=== PATIENT | female | born 1995 | race Caucasian/White ===

== ENCOUNTER 2019-02-28 11:34 | Outpatient (CLI) | payer MEDICAID ==
[2019-02-28 12:47] LABS: ADD MAN DIFF? NO
[2019-02-28 12:48] LABS: ABNORMAL IP MESSAGE 1; BASOPHILS % 0.2 % (0.0-2.0); EOSINOPHILS # 0.1 10^3/ul (0.0-0.5); EOSINOPHILS % 0.6 % (0.0-7.0); HEMATOCRIT 29.3 % (37.0-47.0); HEMOGLOBIN 9.7 g/dl (12.0-16.0); LYMPHOCYTES # 1.4 10^3/ul (0.8-2.9); LYMPHOCYTES % 14.1 % (15.0-51.0); MEAN CORPUSCULAR HEMOGLOBIN 28.2 pg (29.0-33.0); MEAN CORPUSCULAR HGB CONC 33.1 g/dl (32.0-37.0); MEAN CORPUSCULAR VOLUME 85.2 fl (82.0-101.0); MEAN PLATELET VOLUME 13.5 fl (7.4-10.4); MONOCYTE # 0.5 10^3/ul (0.3-0.9); MONOCYTES % 5.6 % (0.0-11.0); NEUTROPHIL # 7.7 10^3/ul (1.6-7.5); NEUTROPHILS % 79.3 % (39.0-77.0); PLATELET COUNT 133 10^3/UL (140-415); RED BLOOD COUNT 3.44 10^6/ul (4.20-5.40); RED CELL DISTRIBUTION WIDTH 13.6 % (11.5-14.5)
[2019-02-28 12:48] LABS: WHITE BLOOD COUNT 9.7 10^3/ul (4.8-10.8)
[2019-02-28 12:50] LABS: POSITIVE DIFF @See below
[2019-02-28 12:52] LABS: ADD UMIC YES; UR ASCORBIC ACID NEGATIVE (NEGATIVE); UR BACTERIA FEW /HPF (NONE SEEN); UR BILIRUBIN (Dip) NEGATIVE (NEGATIVE); UR BLOOD (Dip) NEGATIVE (NEGATIVE); UR CLARITY CLEAR (CLEAR); UR COLOR YELLOW (YELLOW); UR GLUCOSE (Dip) NEGATIVE (NEGATIVE); UR KETONES (Dip) NEGATIVE (NEGATIVE); UR LEUKOCYTE ESTERASE (Dip) 2+ Leu/ul (NEGATIVE); UR MUCUS FEW /HPF (NONE SEEN); UR NITRITE (Dip) NEGATIVE (NEGATIVE); UR RBC 0 /HPF (0-5); UR SPECIFIC GRAVITY (Dip) 1.009 (1.003-1.030); UR SQUAMOUS EPITHELIAL CELL FEW /HPF (FEW); UR TOTAL PROTEIN (Dip) NEGATIVE (NEGATIVE); UR UROBILINOGEN (Dip) NEGATIVE (NEGATIVE); UR WBC 2 /HPF (0-5)
== END 2019-02-28 13:35 | disposition home or self-care (01) ==
LOC: OBT 11:34 → L-D 11:34 → OBT 13:35
DX: O62.9 Abnormality of forces of labor, unspecified (principal); Z3A.28 28 weeks gestation of pregnancy
CPT/HCPCS: 76817; 76818; 81001; 85025; 87086

== ENCOUNTER 2019-05-16 07:00 | Inpatient (IN) | payer OTHER, MEDICAID ==
[2019-05-16 08:01] LABS: ADD MAN DIFF? NO
[2019-05-16 08:04] LABS: WHITE BLOOD COUNT 8.5 10^3/ul (4.8-10.8)
[2019-05-16 08:04] LABS: ABNORMAL IP MESSAGE 1; BASOPHILS % 0.2 % (0.0-2.0); EOSINOPHILS % 0.5 % (0.0-7.0); HEMATOCRIT 31.6 % (37.0-47.0); HEMOGLOBIN 10.2 g/dl (12.0-16.0); LYMPHOCYTES # 1.7 10^3/ul (0.8-2.9); LYMPHOCYTES % 20.1 % (15.0-51.0); MEAN CORPUSCULAR HEMOGLOBIN 26.5 pg (29.0-33.0); MEAN CORPUSCULAR HGB CONC 32.3 g/dl (32.0-37.0); MEAN CORPUSCULAR VOLUME 82.1 fl (82.0-101.0); MONOCYTE # 0.5 10^3/ul (0.3-0.9); MONOCYTES % 5.6 % (0.0-11.0); NEUTROPHIL # 6.2 10^3/ul (1.6-7.5); NEUTROPHILS % 73.2 % (39.0-77.0); RED BLOOD COUNT 3.85 10^6/ul (4.20-5.40); RED CELL DISTRIBUTION WIDTH 15.3 % (11.5-14.5)
[2019-05-16 08:07] LABS: ADD UMIC NO; UR ASCORBIC ACID NEGATIVE (NEGATIVE); UR BILIRUBIN (Dip) NEGATIVE (NEGATIVE); UR BLOOD (Dip) NEGATIVE (NEGATIVE); UR CLARITY CLEAR (CLEAR); UR COLOR YELLOW (YELLOW); UR GLUCOSE (Dip) NEGATIVE (NEGATIVE); UR KETONES (Dip) NEGATIVE (NEGATIVE); UR LEUKOCYTE ESTERASE (Dip) NEGATIVE Leu/ul (NEGATIVE); UR NITRITE (Dip) NEGATIVE (NEGATIVE); UR SPECIFIC GRAVITY (Dip) 1.019 (1.003-1.030); UR TOTAL PROTEIN (Dip) NEGATIVE (NEGATIVE); UR UROBILINOGEN (Dip) NEGATIVE (NEGATIVE)
[2019-05-16 08:20] LABS: POSITIVE DIFF @See below
[2019-05-16 08:21] LABS: ALANINE AMINOTRANSFERASE 21 IU/L (13-69); ALBUMIN 2.8 g/dl (3.3-4.9); ALBUMIN/GLOBULIN RATIO 0.93; ALKALINE PHOSPHATASE 154 IU/L (42-121); ANION GAP 7 (5-13); ASPARTATE AMINO TRANSFERASE 28 IU/L (15-46); BILIRUBIN,INDIRECT 0.4 mg/dl (0-1.1); BILIRUBIN,TOTAL 0.4 mg/dl (0.2-1.3); BLOOD UREA NITROGEN 8 mg/dl (7-20); CALCIUM 8.8 mg/dl (8.4-10.2); CARBON DIOXIDE 23 mmol/L (21-31); CHLORIDE 105 mmol/L (97-110); CREATININE 0.53 mg/dl (0.44-1.00); Estimated GFR > 60 mL/min (>60); GLUCOSE 80 mg/dl (70-220); POTASSIUM 3.9 mmol/L (3.5-5.1); SODIUM 135 mmol/L (135-144); TOTAL PROTEIN 5.8 g/dl (6.1-8.1); URIC ACID 4.5 mg/dl (3.1-7.9)
[2019-05-16 08:29] LABS: INR 0.91; PLATELET COUNT 121 10^3/UL (140-415); PROTIME 12.4 Sec (11.9-14.9)
[2019-05-16 08:30] LABS: PARTIAL THROMBOPLASTIN TIME 30.7 Sec (23.0-35.0)
[2019-05-16] MEDS ORDERED: OXYTOCIN 30 UNITS/LR 500 ML IV (11:30)
[2019-05-16] MEDS ORDERED: MISOPROSTOL 200 MCG TAB PR (11:30)
[2019-05-16] MEDS ORDERED: METHYLERGONOVINE 0.2 MG INJ IM (11:30)
[2019-05-16] MEDS ORDERED: IBUPROFEN 600 MG TAB PO (11:30)
[2019-05-16] MEDS ORDERED: LIDOCAINE 1% (MPF) 30 ML INJ INJ (11:30)
[2019-05-16] MEDS ORDERED: CARBOPROST 250 MCG INJ IM (11:30)
[2019-05-16] MEDS ORDERED: BUTORPHANOL 2 MG INJ IV (11:30)
[2019-05-16] MEDS: LACTATED RINGER'S 1,000 ML IV ×2 (13:26→20:01)
[2019-05-16] MEDS: OXYTOCIN 30 UNITS/LR 500 ML IV (13:30)
[2019-05-16 20:03] LABS: RAPID PLASMA REAGIN NONREACTIVE (NR)
[2019-05-16] MEDS: BUTORPHANOL 2 MG INJ IV (23:07)
[2019-05-17] MEDS: LACTATED RINGER'S 1,000 ML IV ×3 (04:06→14:19)
[2019-05-17] MEDS: BUTORPHANOL 2 MG INJ IV ×2 (04:42→12:57)
[2019-05-17] MEDS ORDERED: NALOXONE (0.4 MG/ML) INJ IV (14:30)
[2019-05-17] MEDS ORDERED: DIPHENHYDRAMINE 50 MG INJ IV (14:30)
[2019-05-17] MEDS: FENTAnyl 2MCG/ML-ROPIV 0.2% 100 ML BAG EPI (21:06)
[2019-05-17] MEDS: OXYTOCIN 30 UNITS/LR 500 ML IV ×2 (22:43)
[2019-05-17] MEDS ORDERED: CARBOPROST 250 MCG INJ IM (23:30)
[2019-05-17] MEDS ORDERED: OXYTOCIN 30 UNITS/LR 500 ML IV (23:30)
[2019-05-17] MEDS ORDERED: METHYLERGONOVINE 0.2 MG INJ IM (23:30)
[2019-05-17] MEDS ORDERED: MISOPROSTOL 200 MCG TAB PR (23:30)
[2019-05-17] MEDS ORDERED: HYDROCODONE/APAP (5/325) TAB PO (23:30)
[2019-05-18] MEDS: OXYTOCIN 30 UNITS/LR 500 ML IV ×2 (02:15→08:16)
[2019-05-18] MEDS: LANOLIN HPA 1 PKT TOP (02:15)
[2019-05-18] MEDS: ONDANSETRON 4 MG INJ IV (04:19)
[2019-05-18] MEDS: IBUPROFEN 600 MG TAB PO ×4 (05:54→17:32)
[2019-05-18] MEDS: LACTATED RINGER'S 1,000 ML IV* (08:06)
[2019-05-18 09:47] LABS: HEPATITIS B SURFACE ANTIGEN NEGATIVE (NEGATIVE)
[2019-05-18] MEDS: BENZOCAINE 20% 56 ML SPRAY TOP (14:58)
[2019-05-18] MEDS: WITCH HAZEL/GLYCERIN PAD PR (14:58)
[2019-05-19] MEDS: IBUPROFEN 600 MG TAB PO ×4 (00:51→17:57)
[2019-05-19 08:47] LABS: ADD MAN DIFF? NO
[2019-05-19 08:57] LABS: ABNORMAL IP MESSAGE 1; BASOPHILS % 0.3 % (0.0-2.0); EOSINOPHILS # 0.1 10^3/ul (0.0-0.5); EOSINOPHILS % 0.6 % (0.0-7.0); HEMATOCRIT 26.5 % (37.0-47.0); HEMOGLOBIN 8.5 g/dl (12.0-16.0); LYMPHOCYTES # 1.1 10^3/ul (0.8-2.9); LYMPHOCYTES % 14.1 % (15.0-51.0); MEAN CORPUSCULAR HEMOGLOBIN 26.6 pg (29.0-33.0); MEAN CORPUSCULAR HGB CONC 32.1 g/dl (32.0-37.0); MEAN CORPUSCULAR VOLUME 83.1 fl (82.0-101.0); MONOCYTE # 0.5 10^3/ul (0.3-0.9); MONOCYTES % 6.5 % (0.0-11.0); NEUTROPHIL # 6.2 10^3/ul (1.6-7.5); PLATELET COUNT 99 10^3/UL (140-415); RED BLOOD COUNT 3.19 10^6/ul (4.20-5.40); RED CELL DISTRIBUTION WIDTH 15.9 % (11.5-14.5)
[2019-05-19 08:57] LABS: WHITE BLOOD COUNT 7.9 10^3/ul (4.8-10.8)
[2019-05-19] MEDS: DIPHTH/TET/ACEL PERTUSS (ADULT) 0.5 ML VIAL IM* (09:00)
[2019-05-19 09:23] LABS: POSITIVE DIFF @See below
[2019-05-19] MEDS: MEASLES,MUMPS,RUBELLA VACCINE INJ SC* (17:58)
== END 2019-05-19 18:45 | disposition home or self-care (01) | DRG 807 ==
LOC: OBT 07:00 → PP1 05-18 01:00 → L-D 07:00 → OBT 11:20 → L-D 11:20
PROC: 10D07Z8 Extraction of Products of Conception, Other, Via Natural or Artificial Opening (ICD-10-PCS; principal; 2019-05-17)
PROC: 0HQ9XZZ Repair Perineum Skin, External Approach (ICD-10-PCS; 2019-05-17)
DX: O48.0 Post-term pregnancy (principal); Z37.0 Single live birth; O70.0 First degree perineal laceration during delivery; Z3A.41 41 weeks gestation of pregnancy; O69.81X0 Labor and delivery complicated by cord around neck, without compression, not applicable or unspecified
CPT/HCPCS: 62322; 76815; 76818; 80053; 81003; 84560; 85025; 85384; 85610; 85730; 86592; 86850; 86900; 86901; 87340